=== PATIENT | male | born 1965 | race Caucasian/White ===

== ENCOUNTER 2017-01-20 06:06 | Emergency (ER) | payer OTHER ==
[~2017-01-20] VITALS: Ht 180.3 cm; Wt 124.1 kg
[2017-01-20 06:37] LABS: HEMATOCRIT 54.5 % (38.0-50.0); MCH 29.8 PG (29.0-34.0); MCHC 33.2 G/DL (30.0-36.0); MCV 89.8 FL (86-99); MEAN PLAT.VOLUME 10.6 uM^3 (9.0-12.4); PLATELET COUNT 191 K/uL (156-360); RBC DIS.WIDTH-CV 12.6 % (11.8-14.6); RBC DIS.WIDTH-SD 41.6 % (39-53); RED BLOOD COUNT 6.07 M/uL (4.00-5.50); WHITE BLOOD COUNT 7.5 K/uL (4.1-10.2)
[2017-01-20 07:00] LABS: ANION GAP 8 MEQ/L (2-14); CHLORIDE 103 MEQ/L (99-109); POTASSIUM 4.3 MEQ/L (3.7-5.4); SAMPLE HEMOLYSIS CHECK 0; SAMPLE ICTERIC CHECK 0; SAMPLE LIPEMIA CHECK 0; SODIUM 137 MEQ/L (136-147)
[2017-01-20 07:06] LABS: GFR ESTIMATE (CALCULATED) > 59 mL/min/; GLUCOSE 111 mg/dL (70-99); UREA NITROGEN (BUN) 16 mg/dL (9-23)
[2017-01-20 07:09] LABS: TROP-I INTERPRETATION NEGATIVE; TROPONIN-I < 0.01 ng/mL (0.0-0.30)
[2017-01-20 08:00] VITALS: BP 133/81
== END 2017-01-20 08:05 | disposition home or self-care (01) ==
LOC: EME 06:06
DX: R07.9 Chest pain, unspecified (principal); I10 Essential (primary) hypertension
CPT/HCPCS: 71020; 80048; 84484; 85027; 93005; 99281; 99284